=== PATIENT | female | born 1945 | race Caucasian/White ===

== ENCOUNTER 2018-10-09 08:31 | Inpatient (IN) | payer OTHER ==
[~2018-10-09] VITALS: Ht 147.3 cm; Wt 66.9 kg
--- NOTE | ~2018-10-09 | PROC ---
[facility] [address] [place] [address] PROCEDURE REPORT Name: LM PRIETO Room: [address] IN ..#: [id number] Admission: 10/09/18 Attend Phys: Emma Dorantes Discharge: Date of : 41 Report #: [id number] THIS REPORT FOR: //name// For GI report, please see the Provation report in Perceptive 7 content. By: 0654Medical Records Staff THERON /RENÉ
[2018-10-09 08:31] VITALS: BP 73/49
[~2018-10-09 08:31] MED LIST: ACETAMINOPHEN325 M1 PO; ASPIRIN EC81 M1 PO; ATENOLOL 25 MG25 M1 PO; CIPROFLOXACIN500 M1 PO; CLEOCIN HCL300 MG PO; FLAGYL500 MG PO; LISINOPRIL-HCT1 EAC1 PO; MIRALAX17 G1 PO; NORCO 5-325 TA1 EACH PO; PRILOSEC OTC20 MG PO; atenolol; lisinopril
[2018-10-09 09:27] LABS: ABSOLUTE BASOPHILS 0.1 thou/uL (0.0-0.2); ABSOLUTE EOSINOPHILS 0.3 thou/uL (0.0-0.7); ABSOLUTE LYMPHOCYTES 2.4 thou/uL (0.8-5.3); ABSOLUTE MONOCYTES 0.3 thou/uL (0.0-1.2); ABSOLUTE NEUTROPHILS 8.9 thou/uL (1.6-8.1); BASOPHILS 0.9 %; EOSINOPHILS 2.1 %; HEMATOCRIT 47.3 % (37.0-47.0); HEMOGLOBIN 15.7 gm/dL (12.0-15.0); LYMPHOCYTES 19.8 %; MCH 29.5 pg (26.0-34.0); MCHC 33.2 g/dL (28.0-37.0); MCV 88.9 fL (80.0-100.0); MONOCYTES 2.4 %; MPV 7.7 fl. (7.2-11.1); NUCLEATED RBCS 0 /100WBC; PLATELET COUNT* 377 thou/uL (150-400); POLYS 74.8 %; RBC 5.32 mil/uL (4.20-5.00); RDW-CV 14.7 % (10.5-14.5); WBC 11.9 thou/uL (4.0-11.0)
[2018-10-09 09:37] LABS: ANION GAP 10 mmol/L (7-16); BUN 25 mg/dL (7-18); CHLORIDE 103 mmol/L (98-107); CO2 27 mmol/L (21-32); CREATININE 1.5 mg/dL (0.6-1.3); GLUCOSE 184 mg/dL (70-99); SODIUM 140 mmol/L (136-145)
[2018-10-09 09:39] LABS: APTT 23.3 Seconds (25.0-31.3); INR 1.1; PROTIME 10.8 Seconds (9.20-11.50)
[2018-10-09 09:49] LABS: ALBUMIN 3.8 g/dL (3.4-5.0); ALKALINE PHOSPHATASE 152 U/L (46-116); LIPASE 192 U/L (73-393); SGOT 23 U/L (15-37); SGPT 24 U/L (30-65); TOTAL BILIRUBIN 0.7 mg/dL (<0.1-1.0); TOTAL PROTEIN 7.9 g/dL (6.4-8.2); TROPONIN-I LEVEL <0.06 ng/mL (<0.06)
[2018-10-09 09:56] LABS: PLATELET ESTIMATE ADEQUATE
[2018-10-09] MEDS ORDERED: LIPITOR10 MG PO (10:50)
[2018-10-09 11:23] LABS: URINE BILIRUBIN NEGATIVE (Negative); URINE BLOOD NEGATIVE (Negative); URINE CLARITY CLEAR; URINE COLOR YELLOW; URINE GLUCOSE-RANDOM NEGATIVE (Negative); URINE KETONES NEGATIVE (Negative); URINE LEUKOCYTES-REFLEX NEGATIVE (Negative); URINE NITRITE-REFLEX NEGATIVE (Negative); URINE PROTEIN 1+ (Negative); URINE SPECIFIC GRAVITY 1.015 (1.005-1.030)
[2018-10-09 11:27] VITALS: BP 108/47
[2018-10-09 11:39] LABS: HYALINE CASTS 4-10 Moderate /LPF (None Seen); SQUAMOUS >10 Many /LPF (0-3)
[2018-10-09 11:40] LABS: CALCIUM OXALATE 0-3 Few /LPF (None Seen); URINE RBC 0-2 Rare /HPF (0-2); URINE WBC-REFLEX 0-5 Rare /HPF (0-5)
[2018-10-09 15:01] LABS: CREATININE 1.2 mg/dL (0.6-1.3); MAGNESIUM 1.7 mg/dL (1.8-2.4); POTASSIUM 3.8 mmol/L (3.5-5.1)
[2018-10-09 16:00] VITALS: BP 160/72
[2018-10-09 20:00] VITALS: BP 177/74
--- NOTE | 2018-10-09 20:17 | NUR ---
I ASSUMED CARE OF THE PATIENT AT 1145 A TRANSFER FROM THE ED. SHE WAS BROUGHT IN BY EMS FOR WEAKNESS. BED IS IN THE LOW LOCKED POSITION AND CALL LIGHT IS IN REACH. PAIN IS MANAGED WITH PRN MEDS. BLOOD PRESSURE IS INCREASING. HOURLY ROUNDING WAS COMPLETED AND PATIENT NEEDS ARE MET. INFUSION NURSE VJ PLACED IV AND SUGGESTED THAT THE NEXT ACCESS POINT BE A MIDLINE. COMPANY AT THE BEDSIDE. WILL CONTINUE TO MONITOR.
[2018-10-09 21:00] VITALS: BP 173/86
[2018-10-09 23:47] VITALS: BP 181/81
[2018-10-10 04:25] VITALS: BP 149/58
[2018-10-10 04:48] LABS: HEMATOCRIT 42.4 % (37.0-47.0); HEMOGLOBIN 13.9 gm/dL (12.0-15.0); MCH 29.2 pg (26.0-34.0); MCHC 32.9 g/dL (28.0-37.0); MCV 88.9 fL (80.0-100.0); RBC 4.77 mil/uL (4.20-5.00); RDW-CV 14.4 % (10.5-14.5); WBC 18.1 thou/uL (4.0-11.0)
--- NOTE | 2018-10-10 04:55 | NUR ---
PT SLEEPING OFF AND ON. ORIENTED X 4. FENTANYL GIVEN TWICE FOR PAIN IN ABD GENERALIZED. ZOFRAN GIVEN ONCE FOR NAUSIA. APPROX 50MLS EMESIS.
[2018-10-10 05:14] LABS: CALCIUM 8.7 mg/dL (8.5-10.1); CREATININE 1.1 mg/dL (0.6-1.3); MAGNESIUM 1.7 mg/dL (1.8-2.4); POTASSIUM 4.1 mmol/L (3.5-5.1)
[2018-10-10 08:00] VITALS: BP 146/54
--- NOTE | 2018-10-10 09:16 | NUR ---
ASSUMED CARE OF PT AT 0730. PT LYING IN BED. PT A&0X4, DENIES ANY PAIN OR SHORTNESS OF BREATH AT THIS TIME. PT STATES HER PAIN IS BETTER AFTER HER PAIN SHOT EARLY THIS MORNING. PT TRACING SR ON THE CUFF FOLDER. ON RA SAT 95%. IVF. PT UP WITH 1 ASSIST TO BATHROOM. HEATH TO DEPENDENT DRAINAGE WITH DARK YELLOW URINE. PT GOAL FOR TODAY IS PAIN AND NAUSEA MGMT, REPLACE MAGNESIUM PER ELECTROLYTE PROTOCOL, ADVANCE DIET IF TOLERATING CLEAR LIQUIDS AND AWAIT CDIFF RESULTS. PT IN SPECIAL CONTACT ISO TO RULE OUT CDIFF. AM ASSESSMENT CHARTED. MEDICATIONS PER MAR. PT REPOSITIONS SELF. HOURLY ROUNDING OBSERVED. BED IN LOW POSITION. CALL LIGHT WITHIN REACH. WILL CONTINUE PLAN OF CARE.
--- NOTE | 2018-10-10 10:28 | EKG ---
[place] [address] ELECTROCARDIOGRAM REPORT Name: LM PRIETO Room: [place] [address] ADM IN .R.#: [id number] Admission: 10/09/18 Attend Phys: Emma Dorantes Discharge: Date of : 41 Report #: [id number] THIS REPORT FOR: //name// [facility] ED Test Date: 2018-10-09 Test Time: 10:05:31 Pat Name: LM PRIETO Department: Room: [facility] Gender: F Oil Spot Washer: : 1945 Requested By: Sandor Nicholas Order Number: [id number] MD: Kaiser Fagan Measurements Intervals [place] Rate: 60 P: 50 MO: 133 QRS: 47 QRSD: 178 T: 55 QT: 471 QTc: 471 Interpretive Statements Sinus rhythm Minimal ST depression, inferior leads Compared to ECG 12/08/2012 09:12:36 ST (T wave) deviation now present Electronically Signed On 10-10-2018 10:28:32 CDT by Kaiser Fagan [email or web address] <ELECTRONICALLY SIGNED> By: Kaiser Fagan MD, FACC 10/10/18 1028 1005 1005 Kaiser Fagan MD, [facility] /EPI
[2018-10-10 12:00] VITALS: BP 157/77
--- NOTE | 2018-10-10 12:00 | NUR ---
MET WITH PT TO DISCUSS HOME SITUATION/DC PLANNING. PT LIVES IN [place] IN HER SON/DIL'S HOME. SHE IS INDEPENDENT WITH ADLS, COOKING, CLEANING. PT HAS 5 CHILDREN, THEY ASSIST WITH TRANSPORTATION PT DOESN'T DRIVE. PT HASN'T HAD HH OR BEEN TO SNF. DENIES DC NEEDS. HAS DPOA. PT HAS APPT WITH HER PCP ON TUESDAY, ENCOURAGED HER TO KEEP APPT AT THIS TIME. WILL FOLLOW
[2018-10-10 16:00] VITALS: BP 113/71
--- NOTE | 2018-10-10 16:43 | NUR ---
NO ACUTE CHANGES THROUGHOUT SHIFT. REFER TO CHARTING. PT COMPLAINED OF ABDOMINAL PAIN-TREATED WITH PRN FENTANYL WITH RELIEF. GI CONSULT IN PLACE- NO NEW ORDERS RECEIVED AT THIS TIME. AWAITING CDIFF RESULTS. PT DAUGHTER AT BEDSIDE THIS AFTERNOON AND UPDATED ON CURRENT PLAN OF CARE. MEDICATIONS PER APR. PT REPOSITIONS SELF. HOURLY ROUNDING OBSERVED. BED IN LOW POSITION. CALL LIGHT WITHIN REACH. WILL CONTINUE PLAN OF CARE.
[2018-10-10 19:55] VITALS: BP 130/73
[2018-10-11] VITALS (7 sets, daily range): BP systolic 144–163; BP diastolic 66–87
--- NOTE | 2018-10-11 04:58 | NUR ---
PATIENT PARTIALLY PROGRESSING TOWARDS GOALS: VSS ON ROOM AIR. RECEIVING PAIN MEDICATION FREQUENTLY FOR ABDOMINAL PAIN, RELIEF OBTAINED WITH MEDS. PATIENT DENIES NAUSEA AND DIARRHEA THIS SHIFT. CDIFF SAMPLE STILL PENDING RESULTS. POSSIBLE COLONOSCOPY IF RESULTS ARE NEGATIVE, PATIENT VERBALIZES UNDERSTANDING. CALL LIGHT WITHIN REACH
[2018-10-11 05:12] LABS: HEMATOCRIT 34.2 % (37.0-47.0); MCH 29.2 pg (26.0-34.0); MCHC 32.9 g/dL (28.0-37.0); MCV 88.8 fL (80.0-100.0); MPV 7.9 fl. (7.2-11.1); RBC 3.85 mil/uL (4.20-5.00); RDW-CV 14.2 % (10.5-14.5); WBC 18.7 thou/uL (4.0-11.0)
[2018-10-11 05:16] LABS: CALCIUM 8.2 mg/dL (8.5-10.1); CREATININE 0.9 mg/dL (0.6-1.3); POTASSIUM 3.5 mmol/L (3.5-5.1)
[2018-10-11 05:21] LABS: HEMOGLOBIN 11.3 gm/dL (12.0-15.0)
[2018-10-12] VITALS (7 sets, daily range): BP systolic 149–168; BP diastolic 66–90
[2018-10-12 04:28] LABS: HEMATOCRIT 35.6 % (37.0-47.0); HEMOGLOBIN 11.6 gm/dL (12.0-15.0); MCH 29.3 pg (26.0-34.0); MCHC 32.7 g/dL (28.0-37.0); MCV 89.8 fL (80.0-100.0); MPV 7.4 fl. (7.2-11.1); RBC 3.97 mil/uL (4.20-5.00); RDW-CV 14.1 % (10.5-14.5); WBC 18.7 thou/uL (4.0-11.0)
[2018-10-12 04:38] LABS: CALCIUM 8.1 mg/dL (8.5-10.1); CREATININE 0.8 mg/dL (0.6-1.3); MAGNESIUM 1.3 mg/dL (1.8-2.4); POTASSIUM 3.4 mmol/L (3.5-5.1)
--- NOTE | 2018-10-12 05:15 | NUR ---
PATIENT PARTIALLY PROGRESSING TOWARDS GOALS: CONTINUES TO RECEIVE PAIN MEDICATION FOR ABDOMINAL PAIN WITH RELIEF. DENIES NAUSEA/DIARRHEA. NPO FOR EGD/COLONOSCOPY TODAY. VERBALIZES UNDERSTANDING OF PLAN. CALL LIGHT WITHIN REACH
--- NOTE | 2018-10-12 18:18 | CON ---
[facility] [address] [place] [address] CONSULTATION Name: LM PRIETO Room: [address] IN M.R.#: [id number] Admission: 10/09/18 Attend Phys: Emma Dorantes Discharge: Date of : 41 Report #: [id number] THIS REPORT FOR: //name// CC: Noemí Yanes DICTATED BY: Kanika Caro [facility] DATE OF SERVICE: 10/10/2018 Please note at the time of this dictation, the patient was seen and physically examined by myself. REASON FOR CONSULTATION: Abdominal pain, diarrhea, nausea and vomiting. HISTORY OF PRESENT ILLNESS: This is a 73-year-old female who presented to the Emergency Room yesterday morning, she got up, walked her dog, had coffee and breakfast. Shortly thereafter, she felt like she needed to go the bathroom, started having some lower abdominal pain when she went to the bathroom. She states she just broke out in a sweat, became very hot and flushed. She initially had a formed stool and then diarrhea afterwards. She said that she felt extremely weak and felt like then she could not stand because she felt like she would pass out, so she crawled to a doorway where she tried beginning to get her son's attention. She lives in an apartment below where her son lives. She then did experience some nausea and vomited. She did not see any dark, she then having coffee so it was dark in color, but not coffee grounds she states. EMS was called and she was brought into the Emergency Room, she had some episodes in the ER and then again last night of some nausea and vomiting. She states she has no control over her bowels and does realize when she is going. She has never had this happened to her before and still has some lower abdominal cramping as well. She denies any blood in her stools at this time. The patient does have a history of some constipation. She usually may go daily to every other day or sometimes every 2 days that she mentions but has not noticed any bright red blood or any black stools. Last colonoscopy was in 2012, she was noted to have some colon polyps, both hyperplastic and tubular adenoma some diverticulosis and was in recall for 2018, but never scheduled. ALLERGIES: No known drug allergies. MEDICATIONS: From home, omeprazole, MiraLax, Tenormin, lisinopril, aspirin and Lipitor. PAST MEDICAL HISTORY: Hypertension, diabetes and hyperlipidemia [place] [address] CONSULTATION Name: LM PRIETO Room: [address] [place] [facility].#: [id number] Admission: 10/09/18 Attend Phys: Emma Dorantes Discharge: Date of : 41 Report #: [id number] PAST SURGICAL HISTORY: Cataract lens implant, hysterectomy, cholecystectomy and diverticulitis. FAMILY HISTORY: Mother with history of colon cancer. SOCIAL HISTORY: Denies any alcohol, tobacco or illegal drug use. She does live an apartment below her son. REVIEW OF SYSTEMS: Twelve-point review of systems is essentially negative except what is mentioned in the HPI. PHYSICAL EXAMINATION: VITAL SIGNS: Temperature 36.9, pulse 75, respirations 16 and blood pressure 146/54. HEART: Regular rate and rhythm. LUNGS: Clear. ABDOMEN: Soft, positive bowel sounds in all 4 quadrants with tenderness noted in the lower and left upper and lower quadrants. LABORATORY DATA: Hemoglobin is 13.9, white count is 18.1 and platelets 311. GFR is 48. C. diff stool is pending. CT showed no wall thickening just fluid noted throughout the colon and some diverticulosis. IMPRESSION: 1. Abdominal pain. 2. Nausea and vomiting. 3. Diarrhea. 4. Gastroesophageal reflux disease. 5. Some history of constipation. 6. History of colon polyps, hyperplastic and tubular adenoma back in 2012. 7. Family history of colon cancer in mother. PLAN: 1. Clostridium difficile pending. 2. Depending on the stool culture, if it is negative, we will need a colonoscopy; however, the patient is reluctant to want to do that while she is here at this time. 3. Diet of clear liquids. 4. Further recommendations to be made once the above have all been noted. Thank you for allowing us to participate in this patient's care. Please do not hesitate to call with any questions in regard to this consult. <ELECTRONICALLY SIGNED> By: Karlo Delacruz DO 10/12/18 1818 1200 [id number] Delacruz DO /nt
[2018-10-12 22:16] LABS: MAGNESIUM 2.9 mg/dL (1.8-2.4); POTASSIUM 3.5 mmol/L (3.5-5.1)
[2018-10-13] VITALS: BP 139/72
[2018-10-13 04:00] VITALS: BP 138/73
[2018-10-13 04:13] LABS: HEMATOCRIT 33.7 % (37.0-47.0); HEMOGLOBIN 11.2 gm/dL (12.0-15.0); MCH 29.7 pg (26.0-34.0); MCHC 33.3 g/dL (28.0-37.0); MCV 89.3 fL (80.0-100.0); MPV 7.3 fl. (7.2-11.1); RBC 3.77 mil/uL (4.20-5.00); RDW-CV 13.8 % (10.5-14.5); WBC 13.7 thou/uL (4.0-11.0)
[2018-10-13 04:38] LABS: ALBUMIN 2.1 g/dL (3.4-5.0); CALCIUM 7.4 mg/dL (8.5-10.1); CREATININE 0.8 mg/dL (0.6-1.3); MAGNESIUM 2.3 mg/dL (1.8-2.4); POTASSIUM 3.4 mmol/L (3.5-5.1); TOTAL BILIRUBIN 0.3 mg/dL (<0.1-1.0); TOTAL PROTEIN 5.3 g/dL (6.4-8.2)
--- NOTE | 2018-10-13 06:40 | NUR ---
Patient partially progressing towards goals: VSS on room air. Patient continues to have abdominal pain, relieved with PO medication per emar. Patient eager to be discharged but understands that physician would like her her for a few more days to regain her strength. Call light within reach
[2018-10-13 07:30] VITALS: BP 137/66
--- NOTE | 2018-10-13 11:34 | NUR ---
RECEIVED PT CARE 0700. SHE IS AWAKE/ALERT AND ORIENTED X4. VSS. WASTE MANAGEMENT ENGINEER TRACING SR. SHE IS UP STANDBY ASSIST IN ROOM TO BEDSIDE COMMODE. 2 MODERATE SIZED BOWEL MOVEMENTS THIS AM. BOTH SOFT AND UNFORMED. REPLACING ELECTROLYTES PER PROTOCOL. IVF INFUSING. O2 SAT 95% ON ROOM AIR. PATIENTS DAUGHTER UPDATED ON PLAN OF CARE THIS AM. AM ASSESSMENT CHARTED. MEDS GIVEN PER APR. BED ALARM ON. CALL LIGHT WITHIN REACH. WILL CONTINUE TO MONITOR.
[2018-10-13 12:44] VITALS: BP 137/72
[2018-10-13 16:40] VITALS: BP 135/66
[2018-10-13 20:10] VITALS: BP 151/73
[2018-10-14] VITALS: BP 146/71
[2018-10-14 04:00] VITALS: BP 168/74
[2018-10-14 04:40] LABS: HEMATOCRIT 32.6 % (37.0-47.0); MCH 29.6 pg (26.0-34.0); MCHC 33.6 g/dL (28.0-37.0); MCV 88.1 fL (80.0-100.0); MPV 7.2 fl. (7.2-11.1); RBC 3.7 mil/uL (4.20-5.00); WBC 14.1 thou/uL (4.0-11.0)
[2018-10-14 04:53] LABS: ALBUMIN 2.1 g/dL (3.4-5.0); CALCIUM 8.2 mg/dL (8.5-10.1); CREATININE 0.9 mg/dL (0.6-1.3); MAGNESIUM 1.6 mg/dL (1.8-2.4); POTASSIUM 3.8 mmol/L (3.5-5.1); TOTAL BILIRUBIN 0.4 mg/dL (<0.1-1.0); TOTAL PROTEIN 5.3 g/dL (6.4-8.2)
--- NOTE | 2018-10-14 07:47 | NUR ---
PT CARE ASSUMED AT 1930. SAT MAINTAINED IN RA. ALERT AND ORIENTED X4. CALL LIGHT WITHIN REACH AND BED IN LOW POSITION. C/O PAIN, MEDICATIOIN GIVEN PER EMAR. HOURLY ROUNDING DONE FOR PT SAFETY.
[2018-10-14 08:10] VITALS: BP 163/78
--- NOTE | 2018-10-14 09:23 | NUR ---
ASSUMED CARE OF PT THIS AM AROUND 0715- BOAT FINISHER IN PLACE ORDERED, TRACING SR- UPON ASSESSMENT PT NOTED TO BE RESTING IN BED- PT A&O X4- CONTINENT OF BOWEL AND BLADDER- SBA WITH TRANSFERS FOR SAFETY- LCTA, RESP EVEN AND UN-LABORED- VSS, O2 SAT 96% ON RA- ABD SOFT/ROUND/NON-TENDER, BS X4 QUADS- LAST BM REPORTED X2 DAYS AGO, PT REFUSED MIRALAX THIS AM-IV NOTED TO LEFT HAND INTACT, IVF INFUSSING PRESCIBED- BS MONITORED ORDERED, FAIR PO INTAKE NOTED THIS AM WITH BREAKFAST- RIGHT FOOT NOTED WITH SLIGHT SWELLING AND REDNESS TO LATERAL ASPECT OF FOOT, PHYSICIAN TO BE NOTIFIED- PT REPORTS PAIN 6/10 TO RIGHT FOOT, ELEVATION IN PLACE- CALL LIGHT AND PERSONAL BELONGINGS WITH WITH IN REACH- PT MAKES NEEDS KNOWN- ALL NEEDS MET AT THIS TIME-WCTM
[2018-10-14 11:45] VITALS: BP 150/60
[2018-10-14 15:14] VITALS: BP 156/62
--- NOTE | 2018-10-14 16:19 | NUR ---
PT CURRENTLY RESTING IN BED-MOUNTER FLUTES AND PICCOLOS IN PLACE ORDERED, TRACING SR- IV TO LEFT HAND INTACT, IVF INFUSSING PRESCIBED- RIGHT FOOT X-RAY AND CRISTINE US ORDERED THIS SHIFT R/T FOOT PAIN/REDNESS/WARMTH PER - RESULTS NOTED TO BE NEGATIVE- RIGHT FOOT ELEVATED WITH K-PAD IN PLACE INDICATED- PRN TRAMADOL AND TYLENOL GIVEN X1 AT 1500- PT REPORTS MEDICATION TO BE EFFECTIVE IN RELEAVING PAIN AT THIS TIME- BM NOTED THIS SHIFT- BS MONITORED- CALL LIGHT AND PERSONAL BELONGINGS WITH IN REACH- PT MAKES NEEDS KNOWN- ALL NEEDS MET AT THIS TIME-WCTM
[2018-10-14 19:50] VITALS: BP 165/82
[2018-10-15] VITALS: BP 149/63
[2018-10-15 04:00] VITALS: BP 157/88
[2018-10-15 08:12] VITALS: BP 165/79
--- NOTE | 2018-10-15 09:09 | NUR ---
ASSUMED CARE OF PT THIS AM AROUND 0715- VICE PRESIDENT CORPORATE COMMUNICATIONS IN PLACE ORDERED, TRACING SR- UPON ASSESSMENT PT NOTED TO BE RESTING IN BED- PT A&O X4- CONTINENT OF BOWEL AND BLADDER- SBA WITH TRANSFERS- LCTA, RESP EVEN AND LABORED- VSS, O2 SAT 95% ON RA- ABD SOFT/ROUND/NON-TENDER, BS X 4 QUADS- LAST BM REPORTED THIS AM- IV NOTED TO RIGHT FA INTACT, IVF INFUSSING PRESCIBED- GOOD PO INTAKE NOTED THIS AM WITH BREAKFAST, BS MONITORED ORDERED- PT RATES PAIN TO RIGHT FOOT /10, LEG ELEVATION WITH HEATING PAD IN PLACE- MG NOTED AT 1.4 THIS, CURRENTLY BEING REPLACED PER SCHEDULED DOSE AND PROTOCOL WITH LAB DRAW TO FOLLOW- CALL LIGHT AND PERSONAL BELONGINGS WITH IN REACH- PT MAKES NEEDS KNOWN- ALL NEEDS MET AT THIS TIME-AHSAN
[2018-10-15 09:40] VITALS: BP 165/79
[2018-10-15 11:19] VITALS: BP 98/58
[2018-10-15] MEDS ORDERED: CIPRO500 MG PO (14:57)
--- NOTE | 2018-10-15 15:05 | NUR ---
SPOKE TO PT AND DTR RE HOME HEALTH ORDERS. AGREEABLE TO HH FOR PT. NO PREFERENCE OF COMPANY. ORDER FOR [facility]ALKER FAXED TO [facility]. TO BE DELIVERED TO HOSPITAL. FACESHEET,DISCHARGE INSTRUCTIONS AND ORDER FOR HH FAXED TO [facility]
--- NOTE | 2018-10-15 16:45 | NUR ---
ORDERS RECEIVIED FOR OKAY TO D/C TO HOME THIS SHIFT PER WITH RW AND HH TO BE ORDERED PRIRO TO D/C- HH SET UP WITH [facility] WITH ALL PAPERWORK FAXED INDICATED- 4 WHEEL RW ORDERED AND DELIVERED PRIOR TO D/C- IV TO RIGHT FA D/C'D ALONG WITH CABINET MOUNTER PRIOR TO D/C- D/C TEACHING/EDUCATION/NEEDED FOLLOW UP'S COMMUNICATED TO PT AND DAUGHTER PRIOR TO D/C WITH ALL QUESTIONS AND CONCERNS ADDRESSED PRIOR TO D/C- WRITTEN EDUCATION ALONG WITH SCRIPTS PROVIDED TO PT PRIOR TO D/C- BELONGINGS PACKED AND ACCOUNTED FOR PER PT AND DAUGHTER- PT ESCORTED PER TECH VIA W/C TO VEHICLE AT 1645- NO PROBLEMS TO NOTE AT TIME OF D/C
--- NOTE | 2018-10-16 09:08 | PATH ---
[facility] [address] [place] [address] PATHOLOGY RPT PROCEDURE Name: LM MARKHAM Room: [address] IN .R.#: [id number] Admission: 10/09/18 Date of : 41 Discharge: 10/15/18 Report #: [id number] Path Case #: [id number] [facility] Accession Number: [id number] . 01 Material submitted: . PART A: colon - MID TRANSVERSE COLON POLYP. Modifiers: mid, transverse PART B: colon - DESCENDING COLON. Modifiers: descending PART C: sigmoid colon - SIGMOID COLON . 01 Clinical history: . None provided . 02 Diagnosis: A. Mid transverse colon polyp: - Benign colonic mucosa with suggestion of hyperplastic change, negative for dysplasia/adenomatous change. . B. Descending colon ischemic colitis: - Active colitis with mucosal necrosis typical of ischemic colitis, negative for granulomas, viral inclusions and dysplasia. See comment. . C. Sigmoid colon ischemic colitis: - Active colitis with mucosal necrosis and ulceration typical of ischemic colitis, negative for granulomas, viral inclusions and dysplasia. See comment. (LIBBY:eliane; 10/13/2018) QMS/10/13/2018 . 02 Comment: In both specimens B and C, some viable colonic mucosa is present, less so in the descending colon biopsy (B), but which show mucosal necrosis and relative preservation of the deepest aspects of crypts in association with condensation of the lamina propria and abundant hemorrhage and fibrino-inflammatory debris. The viable mucosa does not show significant crypt distortion or basal lymphoplasmacytosis to elevate a concern for inflammatory bowel disease. (LIBBY:eliane; 10/13/2018) . 02 Electronically signed: . Job Mckeon MD, Pathologist NPI- [id number] . 01 Gross description: . A. Received in formalin labeled "Lm Markham, mid transverse colon polyp," are 2 segments of caldwell soft tissue measuring 1.0 x 0.2 x 0.1 cm in aggregate dimensions and ranging from 0.2 to 0.8 cm in maximum dimension. The specimen is submitted entirely in cassette [place] [address] PATHOLOGY RPT PROCEDURE Name: LM MARKHAM Room: [facility] DIS IN M.R.#: [id number] Admission: 10/09/18 Date of : 41 Discharge: 10/15/18 Report #: [id number] Path Case #: [id number] B. Received in formalin labeled "Shahrzad, Lm, descending colon ischemic colitis," are 4 segments of caldwell soft tissue measuring 0.9 x 0.8 x 0.2 cm in aggregate dimensions and ranging from 0.1 to 0.5 cm in maximum dimension. The specimen is submitted entirely in cassette B1. . C. Received in formalin labeled "Shahrzad, Lm, sigmoid colon ischemic colitis," are 4 segments of caldwell soft tissue measuring 0.9 x 0.6 x 0.3 cm in aggregate dimensions and ranging from 0.1 to 0.5 cm in maximum dimension. The specimen is submitted entirely in cassette C1. (TSD; 10/12/2018) TOB/TOB . 02 Pathologist provided ICD-10: K52.9, K63.3, K55.069 . 02 CPT . 156924, 444546, 843370 Specimen Comment: A courtesy copy of this report has been sent to Specimen Comment: [phone], , . Specimen Comment: Report sent to ,DR PAYTON / DR GRIFFITHS Performed at: [address] [facility], [place], [place] [id number] MD Malachi Patel MD Phone: [phone] Performed at: [facility] [address], [place], [place] [id number] MD Job Mckeon MD Phone: [phone]
== END 2018-10-15 16:50 | disposition home health service (06) | DRG 951 ==
LOC: M.ERS 08:31 → M.TBA-ER 10:23 → M.2W 10:23
PROVIDERS: Family Medicine; ADMIT Internal Medicine
PROC: 0DJ08ZZ Inspection of Upper Intestinal Tract, Via Natural or Artificial Opening Endoscopic (ICD-10-PCS; principal; 2018-10-12)
PROC: 0DBM8ZX Excision of Descending Colon, Via Natural or Artificial Opening Endoscopic, Diagnostic (ICD-10-PCS; principal; 2018-10-12)
PROC: 0DBN8ZX Excision of Sigmoid Colon, Via Natural or Artificial Opening Endoscopic, Diagnostic (ICD-10-PCS; principal; 2018-10-12)
PROC: 0DBL8ZZ Excision of Transverse Colon, Via Natural or Artificial Opening Endoscopic (ICD-10-PCS; 2018-10-12)
DX: Z68.30 Body mass index [BMI] 30.0-30.9, adult (principal); K55.039 Acute (reversible) ischemia of large intestine, extent unspecified; N17.0 Acute kidney failure with tubular necrosis; E43 Unspecified severe protein-calorie malnutrition; N39.0 Urinary tract infection, site not specified; I10 Essential (primary) hypertension; E11.9 Type 2 diabetes mellitus without complications; E86.0 Dehydration; E78.5 Hyperlipidemia, unspecified; K21.9 Gastro-esophageal reflux disease without esophagitis; K59.00 Constipation, unspecified; I95.9 Hypotension, unspecified; D72.829 Elevated white blood cell count, unspecified; B96.20 Unspecified Escherichia coli [E. coli] as the cause of diseases classified elsewhere; K57.30 Diverticulosis of large intestine without perforation or abscess without bleeding; K64.4 Residual hemorrhoidal skin tags; K63.5 Polyp of colon; K44.9 Diaphragmatic hernia without obstruction or gangrene; E83.42 Hypomagnesemia; Z98.49 Cataract extraction status, unspecified eye; Z90.710 Acquired absence of both cervix and uterus; Z90.49 Acquired absence of other specified parts of digestive tract; Z80.0 Family history of malignant neoplasm of digestive organs

== ENCOUNTER 2020-07-14 08:28 | Emergency (ER) | payer OTHER ==
[~2020-07-14] VITALS: Ht 147.3 cm; Wt 54.4 kg
[~2020-07-14 08:28] MED LIST changes: +CIPRO500 MG PO; +LIPITOR10 MG PO
[2020-07-14 10:11] VITALS: BP 126/78
== END 2020-07-14 10:13 | disposition home or self-care (01) ==
LOC: M.ERS 08:28
DX: S92.511A Displaced fracture of proximal phalanx of right lesser toe(s), initial encounter for closed fracture (principal); I10 Essential (primary) hypertension; E11.9 Type 2 diabetes mellitus without complications; Z90.710 Acquired absence of both cervix and uterus; Z90.49 Acquired absence of other specified parts of digestive tract; W22.8XXA Striking against or struck by other objects, initial encounter; Y93.89 Activity, other specified; Y92.89 Other specified places as the place of occurrence of the external cause; Y99.8 Other external cause status